=== PATIENT | female | born 1990 | race African-American/Black ===

== ENCOUNTER 2021-06-01 15:15 | Emergency (ER) | payer MEDICAID ==
[~2021-06-01] VITALS: Ht 165.1 cm; Wt 65.0 kg
[2021-06-01] MEDS ORDERED: LEVETIRACETAM 1000MG PREMIX 100 ML IV ONE (15:30)
[2021-06-01] MEDS ORDERED: SODIUM CHLORIDE 0.9% 1,000 ML IV ONE (15:30)
[2021-06-01 16:55] LABS: BASOPHILS % 0.4 % (0.0-2.0); HEMATOCRIT. 36.6 % (36.0-48.0); HEMOGLOBIN. 11.9 g/dL (12.0-16.0); LYMPHOCYTES % 23.3 % (20.0-50.0); MEAN CORPUSCULAR VOLUME 83.2 fL (81.0-99.0); MEAN PLATELET VOLUME 8.8 fl (7.4-10.4); MONOCYTES % 9.7 % (2.0-8.0); NEUTROPHILS % 64.6 % (40.0-76.0); PLATELET 178 x1000/uL (130-400); RED CELL DISTRIBUTION WIDTH 13.1 % (11.6-14.6)
[2021-06-01 17:07] LABS: CHLORIDE 110 mEq/L (98-107)
[2021-06-01 17:12] LABS: ETHANOL BLOOD < 10 mg/dL
[2021-06-01 19:40] LABS: CLARITY URINE CLEAR (CLEAR); COLOR URINE YELLOW (YELLOW); KETONES URINE NEGATIVE (NEGATIVE); LEUKOCYTE ESTERASE URINE NEGATIVE (NEGATIVE); NITRITE URINE NEGATIVE (NEGATIVE); OCCULT BLOOD URINE NEGATIVE (NEGATIVE); PH URINE 8.5 (4.5-8.0); PROTEIN URINE 1+ (NEGATIVE); SPECIFIC GRAVITY URINE 1.013 (1.005-1.030)
[2021-06-01 19:48] LABS: *AMPHETAMINES SCREEN URINE NEGATIVE (NEGATIVE); *BARBITURATES SCREEN URINE NEGATIVE (NEGATIVE); *BENZODIAZEPINES SCREEN URINE NEGATIVE (NEGATIVE); *COCAINE SCREEN URINE NEGATIVE (NEGATIVE)
[2021-06-01 19:49] LABS: METHADONE URINE SCREEN NEGATIVE (NEGATIVE); OPIATES URINE SCREEN NEGATIVE (NEGATIVE); PHENCYCLIDINE URINE SCREEN NEGATIVE (NEGATIVE)
[2021-06-01 19:53] LABS: CANNABINOID URINE SCREEN PRESUMTIVE POSITIVE (NEGATIVE)
[2021-06-01] MEDS ORDERED: KEPP500 MT (21:09)
[2021-06-01 21:25] VITALS: BP 106/68
== END 2021-06-01 21:39 | disposition home or self-care (01) ==
LOC: ER 15:15
DX: R56.9 Unspecified convulsions (principal); R55 Syncope and collapse; R11.2 Nausea with vomiting, unspecified
CPT/HCPCS: 36415; 70450; 80053; 80305; 80320; 81003; 84484; 85025; 93005; 96365; 99285; J1953; J7030; G0480